=== PATIENT | female | born 1980 | race African-American/Black ===

== ENCOUNTER 2017-02-08 18:44 | Emergency (ER) | payer MEDICAID, OTHER ==
[~2017-02-08 18:44] MED LIST: 1-ME1LIQ PO; ALBU6.7H INH; AZIT250T3 PO
[2017-02-08 18:46] VITALS: BP 221/130; PULSE 101; RESP 16; TEMP 98.8; O2SAT 98
--- NOTE | 2017-02-08 19:18 | PD ---
HPI Chief Complaint: Hypertension Time Seen by Provider: 19:16 Travel History International Travel<30 days: No Contact w/Intl Traveler<30days: No History of Present Illness HPI The patient is a 36 year old female who presents to the [facility] emergency department with a history of reported lower extremity edema that has been ongoing for the last 2 days. The patient denies having swelling like this in the past. She reports that she was last seen by her primary care physician in December. She reports that at that time a pelvic examination was done and treatment for a yeast infection was provided. Her primary care physician is Dr. Wade. She reports that she did not have insurance at this time, therefore laboratory studies were not ordered. The patient reports that over the last months she has had weight gain. She reports that she has gained 9 pounds. She reports that she has also had problems with heat intolerance. The patient denies any prior history of thyroid abnormality. The patient reports that she does smoke one half pack per day. She does report that she has a history of hypertension, however she has been off of her medications due to monetary reasons for the last 2 weeks. The patient is unsure when her last menstrual cycle was. She reports that there is a possibility that she is . She denies any family history of blood clots or any personal history of PE or DVT. She denies using any hormone therapy or oral contraceptive. The patient denies any recent fevers, cough, congestion, neck pain, chest pain, shortness of breath, abdominal pain, vomiting, diarrhea, urinary symptoms, or neurologic symptoms. LMP: Unknown. PFSH Past Medical History Narrative Medical The patient's past medical history is significant for hypertension, currently off of her medication. Cardiovascular Problems: Yes (HTN) High Cholesterol: Yes Cerebrovascular Accident: No Diabetes: Yes (REPORTS NO LONGER HAS) Diminished Hearing: No Hypertension: Yes Immunizations Current: No Myocardial Infarction: No : 4 Para: 3 Miscarriage: 0 : 0 Past Surgical History Narrative Surgical The patient denies any past surgical history. Gynecologic Surgery: Yes (IUD PLACEMENT ) Social History Alcohol Use: Yes (5 times per week, one drink each time) Tobacco Use: Yes (one half pack per day) Substance Use: Yes (marijuana) Allergies-Medications (Allergen,Severity, Reaction): Coded Allergies: No Known Allergies (Unverified , 02/08/17) Reported Meds & Prescriptions Reported Meds & Active Scripts Active Diflucan (Fluconazole) 150 Mg Tab 150 Mg PO ONCE Macrobid (Nitrofurantoin Monoh/Nitrofur Macro) 100 Mg Cap 100 Mg PO BID Metformin (Metformin HCl) 500 Mg Tab 500 Mg PO BIDPC With meals Lisinopril-Hctz 20-12.5 Mg Tab 1 Tab PO DAILY Review of Systems Except as stated in HPI: all other systems reviewed are Neg General / Constitutional: Positive: Weight Gain, No: Fever Eyes: No: Visual changes HENT: No: Headaches, Neck Stiffness, Neck Pain Cardiovascular: Positive: Edema, No: Chest Pain or Discomfort Respiratory: No: Shortness of Breath Gastrointestinal: No: Nausea, Vomiting, Diarrhea, Abdominal Pain Genitourinary: No: Dysuria Musculoskeletal: No: Pain Skin: No Rash Neurologic: No: Weakness, Focal Abnormalities, Change in Mentation, Slurred Speech, Sensory Disturbance Psychiatric: No: Depression Endocrine: Positive: Heat Intolerance, No: Polydipsia Hematologic/Lymphatic: No: Easy Bruising Physical Exam Narrative General: The patient is a well-developed well-nourished female in no acute distress. Head and Neck exam: Head is normocephalic atraumatic. Eyes: EOMI, pupils are equal round and reactive to light. Nose: Midline septum with pink mucous membranes Mouth: Dentition unremarkable. Moist mucus membranes. Posterior oropharynx is not erythematous. No tonsillar hypertrophy. Uvula midline. Airway patent. Neck: No palpable lymphadenopathy. No nuchal rigidity. No thyromegaly palpated. Cardiovascular: Regular rate and rhythm without murmurs, gallops, or rubs. Lungs: Clear to auscultation bilaterally. No wheezes, rhonchi, or rales. Abdomen: Soft, without tenderness to palpation in all 4 quadrants of the abdomen. No guarding, rebound, or rigidity. Normal bowel sounds are audible. No tenderness on palpation of McBurney's point. Extremities: No clubbing or cyanosis. The patient has trace to 1+ pitting edema bilateral lower extremities. 2+ pulses in all 4 extremities. No calf tenderness on palpation. Negative Homans sign. No palpable cords. Back: No costovertebral angle tenderness to palpation. Neurologic Exam: Grossly nonfocal. Skin Exam: No rash noted. Intact skin that is warm and dry. Data Data Last Documented VS Vital Signs Date Time Temp Pulse Resp B/P Pulse Ox O2 Delivery O2 Flow Rate FiO2 02/08/17 20:59 78 20 157/106 98 Room Air 02/08/17 18:46 98.8 Orders Electrocardiogram (02/08/17 19:16) Complete Blood Count With Diff (02/08/17 19:16) Comprehensive Metabolic Panel (02/08/17 19:16) B-Type Natriuretic Peptide (02/08/17 19:16) Urinalysis - C+S If Indicated (02/08/17 19:16) Thyroid Stimulating Hormone (02/08/17 19:16) Chest, Single Ap (02/08/17 19:16) Iv Access Insert/Monitor (02/08/17 19:16) Ecg Monitoring (02/08/17 19:16) Oximetry (02/08/17 19:16) Ed Urine Pregnancytest Poc (02/08/17 19:16) Urine Culture (02/08/17 19:25) Furosemide Inj (Lasix Inj) (02/08/17 20:00) Labs Laboratory Tests Test 02/08/17 02/08/17 19:25 19:40 Urine Color LIGHT-YELLOW Urine Turbidity HAZY Urine pH 6.0 Urine Specific [place] 1.005 Urine Protein NEG mg/dL Urine Glucose (UA) 150 mg/dL Urine Ketones NEG mg/dL Urine Occult Blood NEG Urine Nitrite NEG Urine Bilirubin NEG Urine Urobilinogen LESS THAN 2.0 MG/DL Urine Leukocyte Esterase MOD Urine RBC 1 /hpf Urine WBC 18 /hpf Urine Squamous Epithelial 5 /hpf Cells Microscopic Urinalysis Comment CULTURE INDICATED White Blood Count 10.7 TH/MM3 Red Blood Count 4.45 MIL/MM3 Hemoglobin 12.1 GM/DL Hematocrit 36.7 % Mean Corpuscular Volume 82.5 FL Mean Corpuscular Hemoglobin 27.2 PG Mean Corpuscular Hemoglobin 33.0 % Concent Red Cell Distribution Width 15.4 % Platelet Count 183 TH/MM3 Mean Platelet Volume 11.1 FL Neutrophils (%) (Auto) 60.2 % Lymphocytes (%) (Auto) 30.8 % Monocytes (%) (Auto) 5.6 % Eosinophils (%) (Auto) 2.1 % Basophils (%) (Auto) 1.3 % Neutrophils # (Auto) 6.4 TH/MM3 Lymphocytes # (Auto) 3.3 TH/MM3 Monocytes # (Auto) 0.6 TH/MM3 Eosinophils # (Auto) 0.2 TH/MM3 Basophils # (Auto) 0.1 TH/MM3 CBC Comment DIFF FINAL Differential Comment Sodium Level 136 MEQ/L Potassium Level 4.2 MEQ/L Chloride Level 102 MEQ/L Carbon Dioxide Level 26.1 MEQ/L Anion Gap 8 MEQ/L Blood Urea Nitrogen 9 MG/DL Creatinine 0.83 MG/DL Estimat Glomerular Filtration 94 ML/MIN Rate Random Glucose 233 MG/DL Calcium Level 8.5 MG/DL Total Bilirubin 0.3 MG/DL Aspartate Amino Transf 20 U/L (AST/SGOT) Alanine Aminotransferase 18 U/L (ALT/SGPT) Alkaline Phosphatase 119 U/L B-Type Natriuretic Peptide 56 PG/ML Total Protein 6.7 GM/DL Albumin 3.2 GM/DL Thyroid Stimulating Hormone 1.320 uIU/ML 3rd Gen [facility] Medical Decision Making Medical Screen Exam Complete: Yes Emergency Medical Condition: Yes Medical Record Reviewed: Yes Interpretation(s) Last Impressions Chest X-Ray 02/08/171915 Signed Impressions: Service Date/Time: Wednesday, February 08, 2017 19:30 - CONCLUSION: No acute disease. Howie Garcia MD Differential Diagnosis Valvular abnormality of the veins causing for full edema in the legs, versus hypoalbuminemia, versus right or left heart failure, versus idiopathic edema of the lower extremities, versus edema related to endocrinopathy. Narrative Course During the course of the patients emergency department visit, the patients history, examination, and differential diagnosis were reviewed with the patient. The patient had IV access obtained and blood work sent for analysis. The patient was placed on a mine car repairer with oximetry and blood pressure monitoring. An EKG was ordered. Chest x-ray was ordered. The patient arrives with a blood pressure of 221/130, however this quickly went down to 170/98 when she arrived in the room after triage. The patient cannot recall the name of the blood pressure medication that she was on previously. The patient may have been on a low-dose diuretic such as hydrochlorothiazide to help prevent peripheral edema. The patient will be given Lasix 20 mg IV 1 with her bedside test is negative. The patient's test was negative. The patient was initially provided Lasix 20 mg IV was given to help lower her blood pressure and also help with her peripheral edema.. The patients laboratory studies were reviewed and remarkable for a white count of 10.7, hemoglobin 12.1, platelets 183 with 60.2 neutrophils, lymphocytes 30.8 , monocytes 5.6. CMP is remarkable for a glucose of 233, alkaline phosphatase 119. From reviewing the electronic medical record, the patient reports having history of diabetes, however she reports that she was told that this had gone away. Given the patient's elevated blood sugar at this time, I suspect that the patient has diabetes. The patient will be discharged home with a prescription for metformin. Alkaline phosphatase is 119 and 3.2, TSH 1.32, urinalysis shows a glucose of 150, moderate leukocyte esterase, wbc's 18, culture indicated. BNP is 56. Radiology studies were reviewed and remarkable for a chest x-ray that shows no acute abnormality. Patient will be discharged home with a prescription for metformin, Macrobid for pyuria, Diflucan for yeast infection that has been compliant related to her diabetes. The patient was additionally instructed to start taking a probiotic daily to prevent yeast infections. The patient will also be started on pressure medication. The patient was given a prescription for lisinopril/ hydrochlorothiazide. The patient is resting comfortably and feels better, is alert and in no distress. The patients results and examination findings were discussed with the patient. The repeat examination is unremarkable and benign. The history, exam, diagnostic testing, and current condition do not suggest any significant pathology to warrant further testing, continued ED treatment, admission, or surgical evaluation at this point. The vital signs have been stable. The patient does not have uncontrollable pain, intractable vomiting, or other significant symptoms. The patient's condition is stable and appropriate for discharge. The patient will pursue further outpatient evaluation with a primary care physician or other designated or consulting physician as indicated in the discharge instructions. The patient expressed understanding and was agreeable with this plan. Diagnosis Primary Impression: Lower extremity edema Additional Impressions: Hypertension Qualified Code: I10 - Essential hypertension Diabetes mellitus Qualified Code: E11.65 - Type 2 diabetes mellitus with hyperglycemia, without long-term current use of insulin Referrals: Primary Care Physician 3 days Patient Instructions: Chronic Hypertension (ED), Diabetes and Your Skin (ED), Diabetic Hyperglycemia (ED), General Instructions, Leg Edema (ED) Additional Instructions: The patient is instructed on frequently elevating her legs. The patient is instructed regarding the use of compression stockings when she is up on her feet for an extended period of time. Med/Other Pt SpecificInfo: Prescription(s) given Scripts Fluconazole (Diflucan)150 Mg [id number] Mg PO ONCE #1 TAB Ref 0 Prov:Trini Villalobos MD 02/08/17 Nitrofurantoin Monohydrate Macrocrystals (Macrobid)100 Mg [id number] Mg PO BID #14 CAP Ref 0 Prov:Trini Villalobos MD 02/08/17 Metformin 500 Mg [id number] Mg PO BIDPC #60 TAB Ref 0 With meals Prov:Trini Villalobos MD 02/08/17 Lisinopril-Hctz 20-12.5 Mg Tab1 Tab PO DAILY #30 TAB Ref 0 Prov:Trini Villalobos MD 02/08/17 Disposition: 01 DISCHARGE HOME Condition: Stable Trini Villalobos MD February 08, 2017 19:18
[2017-02-08 19:21] VITALS: BP 170/98; PULSE 84; RESP 20; O2SAT 99
[2017-02-08] MEDS ORDERED: LISI20TA PO (19:28)
[2017-02-08 19:44] LABS: BLOOD, URINE NEG (NEG); COMMENT (UR) CULTURE INDICATED; CULTURE IF INDICATED CULTURE INDICATED; GLUCOSE,URINE 150 mg/dL (NEG); KETONE, URINE NEG (NEG); NITRITE,URINE NEG (NEG); SQUAMOUS EPITHELIAL CELL URINE 5 /hpf (0-5); URINE COLOR LIGHT-YELLOW (YELLW/STRAW)
[2017-02-08 19:52] VITALS: BP 155/100; PULSE 83; RESP 20; O2SAT 97
[2017-02-08 19:56] LABS: AUTOMATED NEUTROPHIL # 6.4 TH/MM3 (1.8-7.7); BASOPHIL # 0.1 TH/MM3 (0-0.2); BASOPHIL % 1.3 % (0.0-2.0); EOSINOPHIL # 0.2 TH/MM3 (0-0.4); EOSINOPHIL % 2.1 % (0.0-4.0); HEMATOCRIT 36.7 % (35.0-46.0); HEMO FLAGS DIFF FINAL; LYMPH % 30.8 % (9.0-44.0); LYMPHOCYTE # 3.3 TH/MM3 (1.0-4.8); MEAN CELL VOLUME 82.5 FL (80.0-100.0); MEAN CORPUSCULAR HEMOGLOBIN 27.2 PG (27.0-34.0); MONO % 5.6 % (0.0-8.0); NEUT % 60.2 % (16.0-70.0); PLATELET COUNT 183 TH/MM3 (150-450); RED BLOOD COUNT 4.45 MIL/MM3 (4.00-5.30); RED CELL DISTRIBUTION WIDTH 15.4 % (11.6-17.2); WHITE BLOOD COUNT 10.7 TH/MM3 (4.0-11.0)
[2017-02-08] MEDS ORDERED: FUROSEMIDE 20 MG/2 ML VIAL IV PUSH ONE (20:00)
--- NOTE | 2017-02-08 20:01 | RADRPT ---
EXAM DATE/TIME: 02/08/2017 19:30 [facility] COMPARISON: No previous studies available for comparison. INDICATIONS : Shortness of breath, hypertension, and swelling. MEDICAL HISTORY : Hypertension. SURGICAL HISTORY : None. ENCOUNTER: Initial ACUITY: 2 days PAIN SCORE: 0/10 LOCATION: Bilateral chest FINDINGS: A single view of the chest demonstrates the lungs to be symmetrically aerated without evidence of mas s, infiltrate or effusion. The cardiomediastinal contours are unremarkable. Osseous structures are intact. CONCLUSION: No acute disease. Howie Garcia MD on February 08, 2017 at 19:59 Board Certified Radiologist. This report was verified electronically.
[2017-02-08 20:29] LABS: ALKALINE PHOSPHATASE 119 U/L (45-117); ALT (GPT) 18 U/L (10-53); ANION GAP 8 MEQ/L (5-15); AST (GOT) 20 U/L (15-37); BICARBONATE 26.1 MEQ/L (21.0-32.0); BLOOD UREA NITROGEN 9 MG/DL (7-18); CHLORIDE 102 MEQ/L (98-107); GLOMERULAR FILTRATION RATE 94 ML/MIN (>89); POTASSIUM 4.2 MEQ/L (3.5-5.1); SODIUM (NA) 136 MEQ/L (136-145); TOTAL BILIRUBIN ADULT 0.3 MG/DL (0.2-1.0)
[2017-02-08] MEDS ORDERED: METF500T PO (20:49)
[2017-02-08] MEDS ORDERED: MACR100C2 PO (20:49)
[2017-02-08] MEDS ORDERED: DIFL150T PO (20:49)
[2017-02-08 20:59] VITALS: BP 157/106; PULSE 78; RESP 20; O2SAT 98
[2017-02-08 21:36] VITALS: BP 159/107
--- NOTE | 2017-02-09 10:45 | EKG ---
Date Performed: 02/08/2017 Time Performed: 19:43:51 PTAGE: 36 years EKG: Sinus rhythm BORDERLINE LEFT AXIS DEVIATION BORDERLINE ECG NO PREVIOUS TRACING DOCTOR: Lopez Jones Interpretating Date/Time 02/09/2017 10:43:51
== END 2017-02-08 23:11 | disposition home or self-care (01) ==
LOC: NEPE 18:44
DX: R60.0 Localized edema (principal); I10 Essential (primary) hypertension; E11.65 Type 2 diabetes mellitus with hyperglycemia; F17.200 Nicotine dependence, unspecified, uncomplicated; N39.0 Urinary tract infection, site not specified; B96.89 Other specified bacterial agents as the cause of diseases classified elsewhere; R06.02 Shortness of breath; Z79.84 Long term (current) use of oral hypoglycemic drugs
CPT/HCPCS: 71010; 80053; 81001; 83880; 84443; 84703; 85025; 87086; 93005; 96374; 99284; J1940